=== PATIENT | female | born 1995 | race Two or more races ===

== ENCOUNTER → 2020-06-19 | Outpatient (CLI) | payer OTHER, SELFPAY ==
--- NOTE | 2020-06-19 09:55 | TISS_PTH ---
PATIENT: LENNIE SIMS LOC: [facility] U#:[id number] AGE/SX: 25/F ROOM: RE06/19/[address]: Dr. Jennifer Gtz MD : 1995 BED: DIS: 06/19/2020 SPEC #: [id number] RECD: 06/19/20 16:16 STATUS: TALITA GUILLE #: [id number] KYLEIGH: 06/19/20 09:[address]: Jennifer Sheriff DEPT: SURGICAL PATHOLOGY RECD BY: Rene Contreras Tissues: A - Buttock, NOS B - Buttock, NOS Procedures: Special Stain Group I Surgery Specimen Level IV GMS Stain (control) HEADER OPERATION: Punch biopsy left buttock PRE-OP DIAGNOSIS: L28.0 10-year history vulvar dermatitis pruritus TISSUE SUBMITTED: A - 4 o'clock, B - 5 o'clock MICROSCOPIC DIAGNOSIS A. Left buttocks, 4 o'clock, punch biopsy: Mild superficial chronic dermatitis. See comment. B. Left buttocks, 5 o'clock, punch biopsy: Mild superficial chronic dermatitis. See comment. AM:evelio 06/24/20 COMMENT A & B. Sections show mild perivascular inflammation consisting primarily of lymphocytes. The overlying epidermis shows mild hyperkeratosis. Fungal stain for microorganisms is negative (GMS with matched control). There is diffuse mild to moderate parakeratosis present in the section from the 5 o'clock biopsy. Clinical correlation is suggested. This case was reviewed and diagnosis discussed with Dr. Chatterjee on 06/25/20 at 9:50 a.m. This case was reviewed and diagnosis discussed with Dr. Wyatt Gtz on 07/10/20 at 10:10 a.m. MICROSCOPIC DESCRIPTION Slides are reviewed. GROSS DESCRIPTION A - Received in fixative is one container labeled with the patient's name and designated 4 o'clock. The specimen consists of a punch biopsy of vazquez-brown skin measuring 0.4 x 0.2 x 0.2 cm. The specimen is totally submitted in one cassette. B - Received in fixative is one container labeled with the patient's name and designated 5 o'clock. The specimen consists of a punch biopsy of vazquez-white skin measuring 0.4 cm in diameter and 0.4 cm in length. The specimen is totally submitted in one cassette. / SJ:rg 06/20/20 TC:3 CPT: 89479 x2, 42138 x2 ADDENDUM ADDENDUM ADDENDUM ADDENDUM ADDENDUM ADDENDUM ADDENDUM ADDENDUM ADDENDUM ADDENDUM ADDENDUM ADDENDUM ADDENDUM ADDENDUM ADDENDUM ADDENDUM ADDENDUM ADDENDUM ADDENDUM ADDENDUM ADDENDUM ADDENDUM ADDENDUM 07/09/2020 11:28 ADDENDUM 07/09/2020 11:28 ADDENDUM 07/09/2020 11:28 ADDENDUM 07/09/2020 11:28 ADDENDUM 07/09/2020 11:28 A. Left buttocks, 4 o'clock, punch biopsy: Polypoid skin with hyperkeratosis and a mild inflammatory cell infiltrate. See note. B. Left buttocks, 5 o'clock, punch biopsy: Psoriasiform spongiotic dermatitis. See note. Note: A. The findings are not entirely specific. They are suggestive of reactive changes secondary to irritation. However, underlying etiology is not apparent based on histologic examination alone. Immunostains for Ki67 (a proliferation marker) and p16 (a surrogate marker for high-risk HPV infection) have been reviewed. Suprabasilar keratinocytes are negative for Ki-67. P16 is negative in squamous epithelium. No dysplasia is seen. PAS stain and submitted GMS are negative for fungal elements. Multiple level sections have been examined. B. The findings are suggestive of subacute spongiotic dermatitis such as nummular dermatitis or allergic contact dermatitis. PAS stain and submitted GMS are negative for fungal elements. Immunostains for Ki67 (a proliferation marker) and p16 (a surrogate marker for high-risk HPV infection) have been reviewed. Suprabasilar keratinocytes are negative for Ki-67. P16 is negative in squamous epithelium. No dysplasia is seen. Multiple level sections have been examined. This case was reviewed in consultation with Dr. Henderson of [facility]. The complete consultative report is viewable in the patient's EMR.
== END | disposition home or self-care (01) ==
PROVIDERS: Visit Provider Obstetrics & Gynecology
DX: L28.0 Lichen simplex chronicus (principal)
CPT/HCPCS: 88305; 88312